=== PATIENT | male | born 1965 | race Caucasian/White ===

== ENCOUNTER → 2019-07-10 | Outpatient (CLI) | payer BC ==
[~2019-07-10] MED LIST: REGADENOSON 0.4 MG/5 ML DISP.SYRIN. IV ONE
--- NOTE | 2019-07-10 16:19 | PCVCIMAG ---
APPROVED REPORT Study performed: 07/10/2019 08:52:18 EXAM: Comprehensive 2D, Doppler, and color-flow Echocardiogram Patient Location: Echo lab Room #: 2Status: routine BSA: 2.16 HR: 68 bpmBP: 122/84 mmHg Rhythm: NSR with PVCs Other Information Study Quality: Good Risk Factors: Cardiac Risk Factors: Hyperlipidemia Indications CAD Fatigue s/p stent 2D Dimensions IVSd: 9.25 (7-11mm)LVOT Diam: 21.67 (18-24mm) LVDd: 51.02 mm PWd: 9.33 (7-11mm)Ascending Ao: 32.68 (22-36mm) LVDs: 32.11 (25-40mm) Left Atrium: 42.34 (27-40mm) Aortic Root: 25.45 mm LV Single Plane 4CH: 54.37 % LV Single Plane 2CH: 64.74 % Biplane EF: 59.8 % Volumes Left Atrial Volume (Systole) Single Plane 4CH: 62.05 mLSingle Plane 2CH: 36.09 mL Biplane LA Volume: 49.00 mLLA ESV Index: 23.00 mL/m2 Aortic Valve AoV Peak Zack.: 1.65 m/s AO Peak Gr.: 10.95 mmHgLVOT Max P.12 mmHg LVOT Max V: 1.01 m/s DARLENE Vmax: 2.26 cm2 Mitral Valve E/A Ratio: 1.4 MV Decel. Time: 136.26 ms MV E Max Zack.: 0.70 m/s MV A Zack.: 0.51 m/s IVRT: 86.51 ms TDI E/Lateral E': 7.00E/Medial E': 7.78 Medial E' Zack.: 0.09 m/s Lateral E' Zack.: 0.10 m/s Pulmonary Valve PV Peak Zack.: 0.80 m/sPV Peak Gr.: 11.00 mmHg Pulmonary Vein P Vein S: 0.35 m/sP Vein A: 0.33 m/s P Vein D: 0.38 m/sP Vein A Dur.: 62.3 msec P Vein S/D Ratio: 0.92 Tricuspid Valve TR Peak Zack.: 1.01 m/s TR Peak Gr.: 4.06 mmHg TV Vmax: 0.60 m/s Left Ventricle The left ventricle is normal size. There is normal LV segmental wall motion. There is normal left ventricular wall thickness. Left ventricular systolic function is normal. The left ventricular ejection fraction is within the normal range. LVEF is 55-60%. Right Ventricle The right ventricle is normal size. The right ventricular systolic function is normal. Atria The left atrium size is normal. The right atrium size is normal. Aortic Valve The aortic valve is normal in structure. Trace aortic regurgitation. There is no aortic valvular stenosis. Mitral Valve The mitral valve is normal in structure. There is no mitral valve regurgitation noted. No evidence of mitral valve stenosis. Tricuspid Valve The tricuspid valve is normal in structure. Trace tricuspid regurgitation. No pulmonary hypertension. Pulmonic Valve The pulmonary valve is normal in structure. There is no pulmonic valvular regurgitation. Great Vessels The aortic root is normal in size. The ascending aorta is normal in size. Aortic arch is normal in caliber. IVC is normal in size and collapses >50% with inspiration. Pericardium There is no pericardial effusion. There is no pleural effusion. <Conclusion> The left ventricle is normal size. LVEF is 55-60%. The aortic valve is normal in structure. Trace aortic regurgitation. The mitral valve is normal in structure. The tricuspid valve is normal in structure. Trace tricuspid regurgitation. No pulmonary hypertension. The pulmonary valve is normal in structure. There is no pericardial effusion.
--- NOTE | 2019-07-11 15:14 | PCVCIMAG ---
APPROVED REPORT Imaging Protocol: Rest Tc-99m/Stress Tc-99m 1 day Study performed: 07/10/2019 09:34:08 Indication: CAD, Chest pain, Dyspnea, Exertional Fatigue Patient Location: Out-Patient Stress Nurse: Kinza Lopez RN, Nayana De La Rosa RN [place] Tech:Mateo DelgadoLISSET Ht: 5 ft 9 in Wt: 233 lbs BSA: 2.20 m2 HR: 89 bpm BP: 164/88 mmHg BMI: 34.4 Rhythm: Sinus Rhythm, ST abnormality Medical History Medical History: Age, Hyperlipdemia, HTN, CAD, Family Hx of CAD Medications: Crestor Allergies: Morphine Previous Cardiac Procedures: PCI Exercise History: Indeterminate Resting Data Rest SPECT myocardial perfusion imaging was performed in supine position 45 minutes following the intravenous injection of 11.2 mCi of Tc-99m Sestamibi. Time of rest injection: 0850 Date: 07/10/2019 Administration Route: IV Administration Site: Right AC Pharmacologic Stress Pharmacologic stress test was performed by injecting Regadenoson 0.4 mg IV push over 10-15 seconds immediately followed by the intravenous injection of 34.2 mCi of Tc-99m Sestamibi. Time of stress injection: 1005 Date: 07/10/2019 Administration Route: IV Administration Site: Right AC Gated Stress SPECT was performed 45 minutes after stress injection. The images were gated to evaluate regional wall motion and calculate left ventricular ejection fraction. Stress Test Details Stress Test: Pharmacologic stress was paired with low level exercise. Reason for pharmacologic stress test: physical limitation. HRMax Heart Rate (APMHR): 168 bpm Resting HR: 89 bpmTarget HR (85% APMHR): 142 bpm Max HR Achieved: 118 bpm % of APMHR: 70 Recovery HR: 90 bpm BP Resting BP: 164/88 mmHg Max BP: 168/80 mmHg Recovery BP: 160/93 mmHg ECG Resting ECG: Sinus Rhythm, nonspecific ST-T abnormalities Stress ECG: Sinus Tachycardia, nonspecific ST-T abnormalities Arrhythmia: PVC's Recovery ECG: Sinus Rhythm, nonspecific ST-T abnormalities Clinical Reason for Termination: Completed protocol Stress Symptoms: Dyspnea, Leg Fatigue Symptoms resolved with caffeine. Stress ECG Conclusion 1. Adequate response intravenous Lexiscan 2. Inadequate heart rate for ECG diagnosis Study Data Post stress, the left ventricular ejection was 58%.. SSS: 10 SRS: 0 SDS: 10 TID = 1.08. Perfusion There is a medium area of moderately reduced uptake in the mid and apical segment of the anterolateral wall which is seen on the stress images as well as the resting images. This area thickens and moves normally and is most consistent with ischemia. Wall Motion Normal left ventricular wall motion. Nuclear Conclusion ECG Findings: non-diagnostic Clinical Findings: negative for ischemia Nuclear Findings: positive for ischemia Exercise Capacity: not assessed Left Ventricular Function: normal 1. Intermediate to high risk study based on reversible anterolateral wall defect 2. Post exercise left ventricular ejection fraction of 58% with normal contractility Interpreted by: aMrtine Anguiano MD Electronically Approved: 07/11/2019 15:13:49 <Conclusion> 1. Adequate response intravenous Lexiscan 2. Inadequate heart rate for ECG diagnosis
== END | disposition home or self-care (01) ==
LOC: PCVCIMAG 08:41
PROVIDERS: ATTEND Internal Medicine
DX: I25.10 Atherosclerotic heart disease of native coronary artery without angina pectoris (principal); R53.83 Other fatigue; R06.09 Other forms of dyspnea
CPT/HCPCS: 78452; 93017; 93306; A9500; J2785

== ENCOUNTER → 2019-07-17 | Outpatient (CLI) | payer BC | END | disposition home or self-care (01) | LOC: PCVCCLINIC 15:14 | PROVIDERS: ATTEND Internal Medicine | DX: Z01.812 Encounter for preprocedural laboratory examination (principal); I25.10 Atherosclerotic heart disease of native coronary artery without angina pectoris; R93.1 Abnormal findings on diagnostic imaging of heart and coronary circulation; E78.5 Hyperlipidemia, unspecified; Z79.899 Other long term (current) drug therapy; Z88.5 Allergy status to narcotic agent | CPT/HCPCS: 36415; 80061; G0463 ==

== ENCOUNTER → 2019-10-12 | Outpatient (CLI) | payer BC ==
--- NOTE | 2019-10-12 17:15 | PCVCIMAG ---
EXAM: DUPLEX ULTRASOUND OF THE RIGHT GROIN INDICATION: Groin swelling and pain. FINDINGS: No pseudoaneurysm is present. The common femoral artery and vein are patent. No arteriovenous fistula is seen. IMPRESSION: Study is negative for pseudoaneurysm. Incidental note is made of a 0.9 x 1.1 x 1.3 cm subcutaneous hematoma. LOC:[id number]
== END | disposition home or self-care (01) ==
LOC: PCVCIMAG 15:12
PROVIDERS: ATTEND Internal Medicine Cardiovascular Disease
DX: R10.31 Right lower quadrant pain (principal); R19.03 Right lower quadrant abdominal swelling, mass and lump
CPT/HCPCS: 93926